=== PATIENT | male | born 1990 | race Caucasian/White ===

== ENCOUNTER 2017-09-13 15:47 | Emergency (ER) | payer BC ==
[2017-09-13] MEDS ORDERED: cefTRIAXone 2 GM in Sodium Chloride 0.9% 100 ML IV ONE (17:28)
[2017-09-13] MEDS ORDERED: Mupirocin Oint 22 GM Tube TOP ONE (17:28)
[2017-09-13] MEDS ORDERED: Sodium Chloride 0.9% 10 ML Syringe FLUSH PRN (17:28)
[2017-09-13] MEDS ORDERED: Doxycycline 100 MG Cap PO ONE (17:29)
--- NOTE | 2017-09-13 17:30 | EDM.PDOC ---
ED HPI GENERAL MEDICAL PROBLEM - General Chief Complaint: Head Injury Stated Complaint: HIT HEAD Time Seen by Provider: 09/13/17 17:20 Source of Information: Reports: Patient History Limitations: Reports: No Limitations - History of Present Illness INITIAL COMMENTS - FREE TEXT/NARRATIVE: 27-year-old male presents to the ED for evaluation of swelling periorbitally on the right side as well as right jennifer-face no spreading down his right anterior neck. History is that of a fall on painted wouldn't stairs inside a home 6 days ago. Patient admitted drinking at the time and feels that he slipped on the stairs which resulted in a fall. He hit his head hard on the stairs and the wall on the way down the stairs. He did not lose consciousness he has full recollection of the events of that evening. He banged both the left parietal aspect of his scalp and right frontal scalp. He has not developed any nausea vomiting or significant headache. He has been working all week. He had a large abrasion on the right frontal scalp from that fall that has subsequently become secondarily infected. Seen at the [facility] and advised to come to the ED for further evaluation and management. The abrasion has opened up and is been losing serous fluid for the last 2 days. He states 2 days ago his right upper eyelid swelled up to the point that it closed his eye for a day. It's better today. He needs change in visual acuity. No nosebleeds. No pain in her cervical spine. Today he is feeling a little bit under the weather like he is perhaps getting the flu. No nausea but appetite is not great ill-defined fever or chills. Onset: Gradual Onset Date: 09/07/17 (Fell down 6 stairs at home) Onset Time: 23:50 Duration: Day(s): Location: Reports: Head (Primarily stuck his right frontal forehead and scalp and temporal scalp on the right side as well as left parietal scalp when he tumbled down the stairs 6 days ago.), Face (Currently has the cellulitis that has spread from the abrasion involving his right periorbital space right jennifer- face and ear down to his right clavicle) Quality: Reports: Ache Severity: Mild Improves with: Reports: None Worsens with: Reports: None Context: Reports: Trauma (Initial injury was a fall downstairs at home 6 days ago.). Denies: Activity Associated Symptoms: Reports: Headaches ( recent appetite today), Loss of Appetite (Mostly today), Malaise. Denies: Confusion, Chest Pain, Cough, cough w sputum, Diaphoresis, Fever/Chills, Nausea/Vomiting, Rash, Seizure, Shortness of Breath, Syncope Treatments UNIFORMER: Reports: Other (see below) Other Treatments UNIFORMER: bacitracin and open at noc Right Face Pain Score (Numeric/FACES): 1 - Related Data Allergies Allergy/AdvReac Type Severity Reaction Status Date / Time ciprofloxacin [From Cipro] Allergy Cannot Verified 09/13/17 16:28 Remember Home Meds: Home Meds Doxycycline [Vibramycin] 100 mg PO DAILY #20 cap 09/13/17 [Rx] Mupirocin Oint [Bactroban Oint] 22 gm TOP BID #2 tube 09/13/17 [Rx] Past Medical History - Past Surgical History Musculoskeletal Surgical History: Reports: Other (See Below) Other Musculoskeletal Surgeries/Procedures:: proximal hamstring repair from the pelvis Social & Family History - Tobacco Use Smoking Status *Q: Current Every Day Smoker Years of Tobacco use: 10 Packs/Tins Daily: 1 - Caffeine Use Caffeine Use: Reports: Coffee - Recreational Drug Use Recreational Drug Use: No - Living Situation & Occupation Living situation: Reports: Single Occupation: Employed ED ROS GENERAL - Review of Systems Review Of Systems: See Below Constitutional: Reports: Malaise, Fatigue (Mostly today), Decreased Appetite. Denies: Fever, Chills, Weakness, Night Sweats (A little bit today), Diaphoresis , Weight Loss HEENT: Reports: Other (Fall 6 days ago with closed head injury. Large abrasion to the right frontal forehead and temporal scalp.). Denies: Contact Lenses, Dental Pain, Ear Discharge, Ear Pain, Eye Discharge, Glasses, Hearing Loss, Nosebleed, Nose Pain Respiratory: Reports: No Symptoms Cardiovascular: Reports: No Symptoms Endocrine: Reports: Fatigue GI/Abdominal: Reports: No Symptoms : Reports: No Symptoms Musculoskeletal: Reports: No Symptoms. Denies: Neck Pain, Shoulder Pain, Arm Pain, Back Pain Skin: Reports: No Symptoms Neurological: Reports: No Symptoms Psychiatric: Reports: No Symptoms Hematologic/Lymphatic: Reports: No Symptoms Immunologic: Reports: No Symptoms ED EXAM, HEAD INJURY - Physical Exam Exam: See Below Exam Limited By: No Limitations General Appearance: Alert, WD/WN, No Apparent Distress, Other (Right jennifer-face is obviously swollen with a large deep abrasion to the right lateral forehead and temporal scalp that is losing serous fluid.) Head: Scalp Tenderness (Right temporal and right lateral forehead swelling due to very large abrasion measuring 9 cm in diameter. ), Facial Abrasions, Facial Swelling (Right forehead and temporal scalp as above. Right jennifer-face is swollen including the right periorbital space right upper eyelid increased warmth and edema both the upper and lower eyelids. Increased warmth compatible with cellulitis due to secondary infection of the abrasion of the scalp and forehead. The rash spreads down across the entire right jennifer-face anterior to his ear over the mandible down his neck to the clavicle. Does have some right preauricular on adenopathy and right posterior clavicular adenopathy.), Other ( Has a veronica--large sebaceous cyst partially 2.5 cm in diameter overlying the left occipital vertex area of his scalp.) Eyes: Bilateral Eye: Periorbital Changes (Swelling of both the upper and lower eyelid due to edema and cellulitis inflammation.), PERRL Ears: Other (Has a deformity of his right ear pinna from previous frostbite injury but no active infection of the ear itself.) Throat/Mouth: Normal Inspection, Normal Lips, Normal Teeth, Normal Oropharynx Neck: Non-Tender, Full Range of Motion, Normal Alignment, Normal Inspection. No : Tender Lateral, Tender Midline Respiratory: No Respiratory Distress, Lungs Clear, Normal Breath Sounds, No Accessory Muscle Use Cardiovascular: Normal Peripheral Pulses, Regular Rate, Rhythm, No Edema, No Gallop, No Murmur, No Rub Extremities: Normal Inspection, Normal Range of Motion, Non-Tender, No Pedal Edema, Lauren's Sign Neurologic: industrial arts teacher II-XII nml As Tested, No Motor/Sensory Deficits, Alert, Normal Mood/Affect, Oriented x 3. No: Abnormal Cerebellar Tests - Susannah Coma Score Best Eye Response ([place]): (4) Open Spontaneously Best Verbal Response ([place]): (5) Oriented Best Motor Response ([place]): (6) Obeys Commands Susannah Total: 15 Course - Vital Signs Last Recorded V/S: Last Vital Signs Temp 36.8 C 09/13/17 16:21 Pulse 65 09/13/17 16:21 Resp 20 09/13/17 16:21 BP 115/80 09/13/17 16:21 Pulse Ox 100 09/13/17 16:21 - Orders/Labs/Meds Orders: Active Orders 24 hr Category Date Time Status Peripheral IV Care [RC] . DIRECTED Care 09/13/17 17:28 Active Vaccines to be Administered [RC] PER UNIT ROUTINE Care 09/13/17 19:13 Active Head wo Cont [CT] Stat Exams 09/13/17 17:43 Taken Sodium Chloride 0.9% [Saline Flush] Med 09/13/17 17:28 Active 10 ml FLUSH ASDIRECTED PRN Peripheral IV Insertion Adult [OM.PC] Stat Oth 09/13/17 17:28 Ordered Medication Orders Sodium Chloride (Saline Flush) 10 ml FLUSH ASDIRECTED PRN PRN Reason: Keep Vein Open Last Admin: 09/13/17 17:48 Dose: 10 ml Labs: Laboratory Tests 09/13/17 09/13/17 Range/Units 17:30 17:30 WBC 7.09 (4.23-9.07) K/mm3 RBC 4.59 L (4.63-6.08) M/mm3 Hgb 13.9 (13.7-17.5) gm/L Hct 39.9 L (40.1-51.0) % MCV 86.9 (79.0-92.2) fl MCH 30.3 (25.7-32.2) pg MCHC 34.8 (32.2-35.5) g/dl RDW Std Deviation 37.0 (35.1-43.9) fL Plt Count 173 (163-337) K/mm3 MPV 10.5 (9.4-12.3) fl Neutrophils % (Manual) 63 H (40-60) % Band Neutrophils % 0 (0-10) % Lymphocytes % (Manual) 31 (20-40) % Atypical Lymphs % 0 % Monocytes % (Manual) 3 (2-10) % Eosinophils % (Manual) 2 (0.8-7.0) % Basophils % (Manual) 1 (0.2-1.2) Platelet Estimate Adequate RBC Morph Comment Normal Sodium 142 (136-145) mEq/L Potassium 4.0 (3.5-5.1) mEq/L Chloride 106 (98-107) mEq/L Carbon Dioxide 28 (21-32) mEq/L Anion Gap 12.0 (5-15) BUN 11 (7-18) mg/dL Creatinine 0.9 (0.7-1.3) mg/dL Est Cr Clr Drug Dosing 113.23 mL/min Estimated GFR (MDRD) > 60 (>60) mL/min BUN/Creatinine Ratio 12.2 L (14-18) Glucose 82 (74-106) mg/dL Calcium 9.0 (8.5-10.1) mg/dL Total Bilirubin 0.3 (0.2-1.0) mg/dL AST 20 (15-37) U/L ALT 26 (16-63) U/L Alkaline Phosphatase 60 (46-116) U/L C-Reactive Protein < 0.2 (<1.0) mg/dL Total Protein 7.1 (6.4-8.2) g/dl Albumin 4.1 (3.4-5.0) g/dl Globulin 3.0 gm/dL Albumin/Globulin Ratio 1.4 (1-2) Meds: Medications Generic Name Dose Route Start Last Admin Trade Name Freq PRN Reason Stop Dose Admin Sodium Chloride 10 ml 09/13/17 17:28 09/13/17 17:48 Saline Flush FLUSH 10 ml ASDIRECTED PRN Administration Keep Vein Open Discontinued Medications Generic Name Dose Route Start Last Admin Trade Name Freq PRN Reason Stop Dose Admin Diphtheria/Tetanus/Acell Pertussis 0.5 ml 09/13/17 19:13 09/13/17 19:24 Adacel IM 09/13/17 19:14 0.5 ml .ONCE ONE Administration Doxycycline Hyclate 200 mg 09/13/17 17:29 09/13/17 17:48 Vibramycin PO 09/13/17 17:30 200 mg ONETIME ONE Administration Ceftriaxone Sodium 2 gm/ 100 mls @ 100 mls/hr 09/13/17 17:28 09/13/17 17:47 Sodium Chloride IV 09/13/17 18:27 100 mls/hr ONETIME ONE Administration Mupirocin 1 gm 09/13/17 17:28 09/13/17 17:49 Bactroban Oint TOP 09/13/17 17:29 1 applic ONETIME ONE Administration - Radiology Interpretation Free Text/Narrative:: 27-year-old male presents to the ED due to developing cellulitis of the right jennifer-face. History reveals that he fell down a flight of stairs I 6 painted wooden stairs in his home about 6 days ago. He been drinking at that time. States he contused the right frontal cortex of his scalp and left hip the left parietal aspect of his head while somersaulted down the stairs. He did not suffer any loss of consciousness. He did however suffer a large abrasion to his right forehead and temporal scalp. This area has become infected and is oozing serous material at this time. 2 days ago it started swelling spread to his right upper eyelid and closed his eye completely for about a day and a half. It opened back up today. Power is developing increased swelling and erythema of his right jennifer-face now over his mandible spreading down his anterior neck on the right side. Due to amount of right periorbital swelling I'm going to have CT of his head carried out. This likely all cellulitis of the face but I cannot rule out retro-orbital space involvement. Also he could well fractured through his frontal sinus on the right side. Plan will be to have labs drawn without blood culture since he is afebrile at this time. BCC CMP and CRP are to be done. He will then receive Rocephin 2 g intravenously. Also doxycycline 200 mg orally. - Re-Assessments/Exams Free Text/Narrative Re-Assessment/Exam: 09/13/17 19:14 Has completed 2 gm of Rocephin intravenously. He will have his T gap updated since he wasn't sure exactly when he been updated last but it likely was around 2005 when he checked into it. CT of the head reveals no intracranial fractures or bleeding. 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 There is also a large sebaceous cyst overlying the Lt occipital scalp which is apparent on clinical exam. White count is 7.09 with 63 % neutrophils and no bands. Hemoglobin is good at 13.9 with a hematocrit of 39.9. White count is normal 173,000. He was 142 with a potassium of 4.0. Chloride is 106 with a bicarbonate 28. And a gap is 12.0. He will and is 11. Creatinine is 0.9. GFR is greater than 60. Glucose is 82 calcium is 9.0. Liver function normal. CRP less than 0.2. Therefore there is no signs of systemic illness. He will be discharged home after TDap has been given. He will be on doxycycline 100 mg twice daily for 10 more days. Bactroban ointment to be applied to scalp abrasion twice daily until healed. Follow-up if not markedly improved in 48-72 hours or sooner if his facial swelling is worsening instead of improving or he develops signs of systemic illness such as fever chills nausea or vomiting. Departure - Departure Time of Disposition: 19:30 Disposition: Home, Self-Care 01 Condition: Fair Clinical Impression: Facial cellulitis Infected abrasion of scalp Qualifiers: Encounter type: initial encounter Qualified Code(s): S00.01XA - Abrasion of scalp, initial encounter - Discharge Information Prescriptions: Doxycycline [Vibramycin] 100 mg PO DAILY #20 cap Mupirocin Oint [Bactroban Oint] 22 gm TOP BID #2 tube Instructions: Cellulitis, Adult, Abrasion, Head Injury, Adult, [id number] Referrals: PCP,None [Primary Care Provider] - Forms: ED Department Discharge Additional Instructions: Evaluation in the emergency him today in regards to secondary infected abrasion of the scalp with right facial cellulitis. Cellulitis means infection under the skin of the soft tissues of the face and now involving the upper part of your right neck as well. CT of your brain was carried out due to the nature of her injury i.e. fall down a flight of stairs 6 days ago. I merely to make sure there was no infection behind her right eye since her right upper eyelid was swollen and closed 2 days ago. No infection was identified. 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 Also identified is sebaceous cyst or veronica on the left occipital scalp. His is a benign lesion but could be removed at your convenience. Lab work proved to be normal with no signs of systemic infection which means bacteria within your bloodstream from facial infection. Initial antibiotic her provided in the ED with intravenous Rocephin 2 g given and also oral doxycycline 200 mg. You need to take toxic and 100 mg twice daily for 10 more days starting tomorrow morning. Also apply Bactroban ointment to your abrasion twice daily until healed. It should stop oozing within the next 48 hours. Right facial swelling and redness should also be markedly improved in the next 48-72 hours. He would need to return to the ED over the weekend if you develop fever greater than 101 or severe chills or nausea or vomiting. Also of course if the infection seemed to be getting worse rather than better in 48 hours. Her tetanus toxoid was updated today along with diphtheria and pertussis vaccination and is good for the next 10 years. - My Orders Last 24 Hours: My Active Orders 09/13/17 17:28 Peripheral IV Care [RC] . DIRECTED Sodium Chloride 0.9% [Saline Flush] 10 ml FLUSH ASDIRECTED PRN Peripheral IV Insertion Adult [OM.PC] Stat 09/13/17 17:43 Head wo Cont [CT] Stat 09/13/17 19:13 Vaccines to be Administered [RC] PER UNIT ROUTINE - Assessment/Plan Last 24 Hours: My Active Orders 09/13/17 17:28 Peripheral IV Care [RC] . DIRECTED Sodium Chloride 0.9% [Saline Flush] 10 ml FLUSH ASDIRECTED PRN Peripheral IV Insertion Adult [OM.PC] Stat 09/13/17 17:43 Head wo Cont [CT] Stat 09/13/17 19:13 Vaccines to be Administered [RC] PER UNIT ROUTINE
[2017-09-13] MEDS ORDERED: Diphtheria,Pertussis(Acell),Tetanus Vaccine 0.5 ML SDV IM ONE (19:13)
--- NOTE | 2017-09-14 08:52 | CT ---
Head CT Technique: Multiple axial sections through the brain were obtained. Intravenous contrast was not utilized. Comparison: No previous intracranial imaging. Findings: Scalp lesion seen posteriorly measuring 2.7 cm. Prominent cisterna magna is seen which is normal variant. Ventricles along with basal cisterns and sulci over the convexities are within normal limits for the patient's age. No abnormal parenchymal densities are seen. No evidence of intracranial hemorrhage. No midline shift or mass effect is seen. Soft tissue swelling noted within the right frontal and temporal scalp. Bone window settings were reviewed which show no acute calvarial abnormality. Visualized sinuses are clear. Impression: 1. Soft tissue swelling within the right frontal and temporal scalp. 2. Scalp lesion most likely benign within the posterior scalp. 3. No acute intracranial abnormality is identified. No acute calvarial abnormality is identified. Diagnostic code #2 I agree with preliminary report issued by [facility] ([facility] report finalized on 09/13/17, 8:06 PM Central Time)
== END 2017-09-13 19:42 | disposition home or self-care (01) ==
LOC: JD.ED 15:47
DX: S00.01XA Abrasion of scalp, initial encounter (principal); L03.211 Cellulitis of face; F17.210 Nicotine dependence, cigarettes, uncomplicated; Z88.1 Allergy status to other antibiotic agents; Z79.899 Other long term (current) drug therapy; W01.10XA Fall on same level from slipping, tripping and stumbling with subsequent striking against unspecified object, initial encounter
CPT/HCPCS: 36415; 70450; 80053; 85025; 86140; 90471; 90715; 96365; 99284; A9270; J0696; J7030; J7050